=== PATIENT | female | born 1990 | race Caucasian/White ===

== ENCOUNTER 2020-07-21 18:21 | Inpatient (IN) ==
[2020-07-21 18:19] LABS: Basophils % 0.2 %; Eosinophils % 0.1 %; Hematocrit 36.1 % (35.3-44.9); Hemoglobin 11.4 g/dL (11.5-15.4); Immature Granulocytes % 0.5 % (0-4); Lymphocytes # 1.9 K/mcL (0.6-4.6); Lymphocytes % 14.6 %; Mean Corpuscular HGB Conc 31.6 g/dL (31.6-35.5); Mean Corpuscular Hemoglobin 26.9 pg (28.0-33.3); Mean Corpuscular Volume 85.1 fL (83.0-100.0); Mean Platelet Volume 11.3 fL (9.4-12.4); Monocytes # 0.8 K/mcL (0.0-1.3); Monocytes % 5.9 %; Neutrophils # 10.1 K/mcL (1.6-8.9); Platelet Count 196 K/mcL (140-400); Red Blood Count 4.24 M/mcL (3.82-4.97); Segmented Neutrophils % 78.7 %; White Blood Count 12.8 K/mcL (4.3-11.1)
[~2020-07-21 18:21] MED LIST: *HR* Nalbuphine 10 MG/ML AMPUL IM PRN; *HR* Nalbuphine 10 MG/ML AMPUL IV PRN; Famotidine 20 MG/2 ML VIAL IVP PRN; Lidocaine 1% 20 ML MDV INFILT PRN; Metoclopramide 10 MG/2 ML VIAL IVP PRN; Naloxone 0.4 MG/ML INJ IVP PRN; Ondansetron 4 MG/2 ML VIAL IVP PRN; Oxytocin 20 units/ LR 1000 mL 20 UNIT/1,000 ML BAG IVC SCH; Penicillin G Potassium 5,000,000 UNIT in 0.9 % Sodium Chloride Mini Bag 100 ML IVPB ONE; Ringers Solution, Lactated 1,000 ML IVC SCH
[2020-07-21] MEDS ORDERED: *HR* FentaNYL (PF) 100 MCG/2 ML VIAL EP ONE (18:27)
[2020-07-21] MEDS ORDERED: Ropivacaine/PF 0.2% 20 ML VIAL EP ONE (18:27)
[2020-07-21] MEDS ORDERED: EPHEDrine 50 MG/ML VIAL IVP PRN (18:27)
[2020-07-21] MEDS ORDERED: *HR* FentaNYL (PF) 100 MCG/2 ML VIAL ONE (18:30)
[2020-07-21] MEDS ORDERED: Ropivacaine/PF 0.2% 20 ML VIAL ONE (18:30)
[2020-07-21] MEDS ORDERED: Epidural Premix (fent/bupiv) 110 ML EP SCH (18:30)
[2020-07-21] MEDS ORDERED: Epidural Premix (fent/bupiv) 110 ML EP ONE (18:33)
[2020-07-21 18:40] LABS: Amphetamine Screen,Urine Negative ng/mL (Cutoff=1000); Barbiturate Screen,Urine Negative ng/mL (Cutoff=200); Benzodiazepines Screen,Urine Negative ng/mL (Cutoff=200); Cannabinoid Screen,Urine Negative ng/mL (Cutoff = 50); Cocaine Screen,Urine Negative ng/mL (Cutoff= 300); Opiate Screen,Urine Negative ng/mL (Cutoff=300); Phencyclidine Screen,Urine Negative ng/mL (Cutoff=25)
[2020-07-21 19:19] LABS: Adenovirus Not Detected (Not Detect); Bordetella Pertussis Not Detected (Not Detect); Chlamydophila pneumoniae Not Detected (Not Detect); Coronavirus 229E Not Detected (Not Detect); Coronavirus HKU1 Not Detected (Not Detect); Coronavirus NL63 Not Detected (Not Detect); Coronavirus OC43 Not Detected (Not Detect); Human Metapneumovirus Not Detected (Not Detect); Human Rhinovirus/Enterovirus Not Detected (Not Detect); Influenza A Subtype 2009 H1 Not Detected (Not Detect); Influenza B Not Detected (Not Detect); Mycoplasma pneumoniae Not Detected (Not Detect); Parainfluenza Virus 1 Not Detected (Not Detect); Parainfluenza Virus 2 Not Detected (Not Detect); Parainfluenza Virus 3 Not Detected (Not Detect); Parainfluenza Virus 4 Not Detected (Not Detect); Respiratory Syncytial Virus Not Detected (Not Detect); SARS-CoV-2 Not Detected (Not Detect)
[2020-07-21] MEDS ORDERED: Penicillin G Potassium 2,500,000 UNIT/105 ML MLS IVPB SCH (20:00)
[2020-07-22] MEDS ORDERED: Acetaminophen 325 MG TABLET PO PRN (02:19)
[2020-07-22] MEDS ORDERED: Oxytocin 20 units/ LR 1000 mL 20 UNIT/1,000 ML BAG IVC SCH (02:19)
[2020-07-22] MEDS ORDERED: Lanolin 7 G OINT...G. TP PRN (02:19)
[2020-07-22] MEDS ORDERED: Ibuprofen 600 MG TABLET PO PRN (02:19)
[2020-07-22] MEDS: Prenatal Vit/FA 1 EACH TABLET PO SCH (09:12)
[2020-07-23] MEDS: Prenatal Vit/FA 1 EACH TABLET PO SCH (08:05)
[2020-07-23 08:08] VITALS: BP 108/72
== END 2020-07-23 12:56 | disposition home or self-care (01) | DRG 807 ==
LOC: 1NENULAB → 1NENUOBS 07-22 02:00
PROVIDERS: ADMIT Advanced Practice Midwife; ATTEND Advanced Practice Midwife